=== PATIENT | male | born 1965 | race Caucasian/White ===

== ENCOUNTER 2022-11-07 14:30 | Emergency (ER) | payer MEDICAID, OTHER ==
[~2022-11-07] VITALS: Ht 177.8 cm; Wt 110.0 kg
[2022-11-07] MEDS ORDERED: KETOROLAC 60MG/2ML VIAL IM ONE (18:00)
[2022-11-07] MEDS ORDERED: ACETAMINOPHEN 325MG TABLET PO ONE (18:00)
[2022-11-07] MEDS ORDERED: TETANUS, DIPHTHERIA, PERTUSSIS VAC/PF 0.5ML (>10YR OLD) IM ONE (20:45)
[2022-11-07] MEDS ORDERED: BACITRACIN ZINC OINT UDPKT TOP ONE (20:45)
[2022-11-07] MEDS ORDERED: IBUP-2029 MT (20:48)
[2022-11-07] MEDS ORDERED: TOPUD MT (20:48)
[2022-11-07 22:34] VITALS: BP 129/77
== END 2022-11-07 22:34 | disposition home or self-care (01) ==
LOC: ER 14:54
DX: S82.51XA Displaced fracture of medial malleolus of right tibia, initial encounter for closed fracture (principal); V09.9XXA Pedestrian injured in unspecified transport accident, initial encounter; Y93.89 Activity, other specified; Y92.89 Other specified places as the place of occurrence of the external cause; Y99.8 Other external cause status
CPT/HCPCS: 29515; 71100; 73080; 73502; 73562; 73610; 73630; 90471; 90715; 96372; 99284; J1885; Z7610